=== PATIENT | male | born 1965 | race Caucasian/White ===

== ENCOUNTER 2020-03-12 03:45 | Emergency (ER) | payer MEDICAID ==
[~2020-03-12] VITALS: Ht 165.1 cm; Wt 50.0 kg
--- NOTE | 2020-03-12 04:08 | PHYS DOC ---
Past History Past Medical History: Anxiety, COPD, Other General Adult HPI: HPI: Patient is a 54 year old male from [facility], who reportedly found down with out a pulse. Fire dept. arrived and started CPR. Pt. initial a asystole and no pulse per paramedics. Patient did received 2 rounds of epinephrine with return tachycardia rhythm, glucose at scene was 150s. Patient was intubated scene. The pt. in route to hospital patient had decreased pulse rate. On arrival in the emergency department patient was found to be without pulse or spontaneous respirations. Patient did receive compressions, bag to ET tube ventilations and with 1 amp of epinephrine, fluid bolus. On pulse check patient was asystole. No spontaneous respirations. No spontaneous pulse, and asystole on monitor. Patient has extensive medical history of generalized muscle weakness, insomnia, cachectic, major depressive disorder, anxiety disorder, acute on chronic respiratory failure, hypoxia and hypercapnia episodes. Pt. admitted to [facility] on 02/06/2018. Patient's primary care is [facility]. Review of Systems: Review of Systems: Non responsive to cardiopulmonary resuscitation Family History: Family History: Not currently available Current Medications: Current Meds: See nursing for detention list Allergies: Allergies: Allergic to naproxen Physical Exam: PE: Constitutional: Appears to be chronically ill HENT: Normocephalic, atraumatic, bilateral external ears normal, oropharynx moist, no oral exudates, nose normal. ET and airway Eyes: Fixed nonresponsive to light Neck: Trachea midline, JVD Cardiovascular: Asystole, only pulses with compressions Lungs & Thorax: Bilateral breath sounds at apex auscultation [] Abdomen: Cachectic, no distention Skin: Cold and cyanotic Extremities: Loss of muscle mass. Arthritic changes. Neurologic: Non responsive EKG: EKG: [] Radiology/Procedures: Radiology/Procedures: [] Heart Score: Risk Factors: Risk Factors: DM, Current or recent (<one month) smoker, HTN, HLP, family history of CAD, obesity. Risk Scores: Score 0 - 3: 2.5% MACE over next 6 weeks - Discharge Home Score 4 - 6: 20.3% MACE over next 6 weeks - Admit for Clinical Observation Score 7 - 10: 72.7% MACE over next 6 weeks - Early Invasive Strategies Course & Med Decision Making: Course & Med Decision Making Pertinent Labs and Imaging studies reviewed. (See chart for details) Jes Mandujano notified at [phone]. Advised of his . Call placed to Alexandre [phone] pt. primary notified of . Code was called at 353 See Code sheet for details. Impression: 1. Cardiopulmonary arrest [] Dragon Disclaimer: Dragon Disclaimer: This electronic medical record was generated, in whole or in part, using a voice recognition dictation system. Dragon Disclaimer This chart was dictated in whole or in part using Voice Recognition software in a busy, high-work load, and often noisy Emergency Department environment. It may contain unintended and wholly unrecognized errors or omissions. Dragon Disclaimer This chart was dictated in whole or in part using Voice Recognition software in a busy, high-work load, and often noisy Emergency Department environment. It may contain unintended and wholly unrecognized errors or omissions. MARÍA LARA MD Mar 12, 2020 04:08
[2020-03-12] MEDS ORDERED: EPINEPHrine SYRINGE 1 MG/10 ML SYRINGE ONE (06:00)
== END 2020-03-12 03:53 ==
LOC: ER 03:45
DX: I46.9 Cardiac arrest, cause unspecified (principal); F32.9 Major depressive disorder, single episode, unspecified; F41.9 Anxiety disorder, unspecified; G47.00 Insomnia, unspecified; J44.9 Chronic obstructive pulmonary disease, unspecified; Z88.8 Allergy status to other drugs, medicaments and biological substances
CPT/HCPCS: 92950; 99285; J0171